=== PATIENT | female | born 1965 | race Caucasian/White ===

== ENCOUNTER 2019-03-09 12:49 | Emergency (ER) | payer OTHER ==
[~2019-03-09] VITALS: Ht 152.4 cm; Wt 66.7 kg
[2019-03-09 12:56] VITALS: Ht 152.4 cm; Wt 66.7 kg
[2019-03-09 15:45] VITALS: BP 145/90
== END 2019-03-09 15:45 | disposition home or self-care (01) ==
LOC: ED 12:49
DX: R07.89 Other chest pain (principal); R00.2 Palpitations; R06.02 Shortness of breath
CPT/HCPCS: J1885